=== PATIENT | female | born 1970 | race Caucasian/White ===

== ENCOUNTER 2017-08-08 17:16 | Emergency (ER) | payer OTHER ==
[~2017-08-08 17:16] MED LIST: BYSTOLIC20 MG PO; FLU VACCINE 0.0.5 ML IM; NESINA6.25 MG PO; PERCOCET 325 MG1 TA2 PO; PHENERGAN PO; TRAMADOL HCL50 MG PO; ZOFRAN 4 MG TABL4 MG PO
--- NOTE | 2017-08-08 18:11 | ED INFLUENZA/URI COMPLAINT ---
History of Present Illness General Chief Complaint: Fever Stated Complaint: FEVER Source: patient Exam Limitations: no limitations Vital Signs & Intake/Output Vital Signs & Intake/Output Vital Signs Date Time Temp Pulse Resp B/P B/P Pulse O2 O2 Flow FiO2 Mean Ox Delivery Rate 08/08 2014 99.8 98 18 102/56 98 Room Air 08/08 1853 96 Room Air 08/08 1850 100.7 100 22 101/53 96 Room Air 08/08 1829 102.6 08/08 1826 102.6 117 20 100/50 89 Room Air Room Air 08/08 1749 91 08/08 1733 103.0 08/08 1728 103.0 123 22 126/72 93 Room Air Allergies Coded Allergies: MDX - Hydrochlorothiazide (HYDROCHLOROTHIAZIDE) (Intermediate, SEVERE MUSCLE CRAMPING 03/19/15) MDX - Duloxetine (From CYMBALTA) (ANAPHYLAXIS 03/19/15) MDX - Vancomycin (ANAPHYLAXIS 03/19/15) Reconcile Medications Albuterol Sulfate (Ventolin Hfa) 90 MCG HFA.AER.AD 2 PUF INH Q4-6 PRN PRN WHEEZING Alogliptin Benzoate (Nesina) (Unknown Strength) TABLET (Unknown Dose) PO DAILY DIABETES (Reported) Benzonatate (Tessalon Perle) 100 MG CAPSULE 1 CAP PO TID PRN COUGH Codeine Phosphate/Guaifenesi (Cheratussin AC Syrup) 10 MG-100 MG/5 ML LIQUID 10 ML PO BID PRN COUGH Flu Vaccine (Flu Vaccine 0.5 Ml (NORVATIS)) 0.5 ML SYR 0.5 ML IM ONCE VACCINE (Reported) Fluticasone Propionate (Flonase Allergy Relief) 50 MCG/ACTUATION SPRAY.SUSP 2 SPRAY CARMEN DAILY CONGESTION Methylprednisolone. (Medrol) 4 MG TAB.DS.PK 1 DP PO AD INFLAMMATION 6 on day 1 then reduce by one tablet daily until gone Nebivolol Hydrochloride (Bystolic) (Unknown Strength) TAB (Unknown Dose) PO DAILY BP (Reported) OXYCODONE HCL/ACETAMINOPHEN (Percocet 5-325 MG Tablet) 325 MG/5 MG TAB 1-2 TAB PO Q4-6 PRN PRN PAIN TRAMADOL HCL (Tramadol HCl) 50 MG TABLET 1 TAB PO TID FIBROMYALGIA (Reported) Triage Note: PT TO ED WITH C/O GEN BODY ACHES, PROD COUGH, CONGESTION AND FEVER X 3 DAYS. REPORTS N/V AND POOR APPETITE WELL. Triage Nurses Notes Reviewed? yes Onset: Gradual Duration: constant Timing: recent history Severity: severe Severity Numbers: 7 : No Patient currently breastfeeds: No HPI: Patient is a 46-year-old female with a past medical history of Lyme disease, hypertension, and diabetes who is AN every day smoker presents emergency room with a 3 day history of generalized severe body aches muscle fatigue weakness cough and nasal congestion fevers and chills. Denies any similar sick contacts, patient had been recently prescribed a month long of azithromycin due to her Lyme disease and her symptoms were she is on day 2 feeling no better. Denies any arm pain jaw pain chest pain shortness of breath this evening exertion leg swelling hemoptysis sore throat ear pain. (Quintin Ramirez) Past History Travel History Traveled to [place] past 21 day No Medical History Any Pertinent Medical History? see below for history Cardiovascular: hypertension Respiratory: pneumonia Musculoskeletal: fibromyalgia, MRSA WOUND Endocrine: diabetes History of MRSA: Yes History of VRE: No History of CDIFF: No Surgical History Surgical History: non-contributory Psychosocial History Who do you live with Patient/Self Services at Home None What is your primary language [place] Tobacco Use: Current Not Daily Daily Tobacco Use Amount/Type: =< 4 Cigarettes daily Family History Family History, If Any: MOTHER Family hx of hypertension grandfather Heart attack Hx Contributory? No (Quintin Ramirez) Review of Systems Review of Systems Constitutional: Reports: see HPI, chills, fever. EENTM: Reports: see HPI, nasal congestion. Respiratory: Reports: see HPI, cough. Cardiovascular: Reports: no symptoms. GI: Reports: no symptoms. Genitourinary: Reports: no symptoms. Musculoskeletal: Reports: see HPI. Skin: Reports: no symptoms. Neurological/Psychological: Reports: no symptoms. Hematologic/Endocrine: Reports: no symptoms. Immunologic/Allergic: Reports: no symptoms. All Other Systems: Reviewed and Negative (Quintin Ramirez) Physical Exam Physical Exam General Appearance: alert, awake, lethargic Head: atraumatic Eyes: Bilateral: normal appearance, PERRL, EOMI. Ears, Nose, Throat: moist mucous membrane, hearing grossly normal, Tympanic normal, pharynx normal, nasal congestion, nasal drainage Neck: normal inspection, supple, full range of motion Respiratory: rhonchi, wheezing Cardiovascular: tachycardia Peripheral Pulses: 2+ radial (R) Gastrointestinal: normal bowel sounds, soft, non-tender Extremities: normal inspection, normal capillary refill, no edema Neurologic/Psych: no motor/sensory deficits, awake Skin: intact, normal color, warm/dry Core Measures Sepsis Present: No Sepsis Focused Exam Completed? No (Quintin Ramirez) Progress Differential Diagnosis: influenza, meningitis, neutropenia, otitis, pneumonia, pharyngitis, sinusitis Plan of Care: Orders Procedure Date/time Status RAPID VIRAL INFLUENZA A 08/09 1731 Complete Microbiology 08/08 1732 NASOPHARYN: Influenza Virus A & B Rapid Smear - COMP History of present illness and exam findings patient is concerned of upper respiratory infection and bronchitis, patient was already prescribed azithromycin, chest x-ray shows considered bronchitis patient's fever resolved patient was able tolerate by mouth upon discharge patient also had resolution of wheezing however noted rhonchi after nebulizer treatments still occurred. Patient was strongly advised to discontinue smoking. Patient felt better after medications were administered and had no questions upon discharge Diagnostic Imaging: Viewed by Me: Radiology Read. Radiology Impression: SEE COMMENTS Initial ED EKG: none Comments: PATIENT: LEAH LEON PRESENT AGE: 46 PATIENT ACCOUNT NO: [id number] : 71 LOCATION: [facility] ORDERING PHYSICIAN: Quintin CONRAD SERVICE DATE: 08/08/17 EXAM TYPE: RAD - XRY-CHEST XRAY, TWO VIEWS EXAMINATION: XR CHEST CLINICAL INFORMATION: Cough. Wheeze. COMPARISON: 03/19/2015 TECHNIQUE: 2 views of the chest were obtained. FINDINGS: The lungs are well expanded. There is no focal consolidation, edema, or effusion. Mild bronchial wall thickening present. No pneumothorax. The cardiomediastinal silhouette is within normal limits. No acute osseous abnormality. IMPRESSION: No consolidation. Bronchial wall thickening can be seen with a small airways process such as asthma or atypical/viral infection. DICTATED BY: Pedro Mckeon MD DATE/TIME DICTATED:08/08/171842 TAIL PULLER:FANY DATE/TIME TRANSCRIBED:08/08/171842 (Quintin Ramirez) Departure Departure Disposition: HOME OR SELF CARE Condition: Stable Clinical Impression Primary Impression: Bronchitis Secondary Impressions: Fever Referrals: Tulio Sánchez MD (PCP/Family) Additional Instructions: As discussed please discontinue smoking, begin the prescription of Medrol Dosepak tomorrow as you received prednisone emergency room today, begin the prescription of Tessalon Perles and Cheratussin for cough, Ventolin for wheezing , and Flonase for congestion. Prescriptions are waiting at [facility]. If symptoms worsen or if you develop any new concerning symptom return to emergency room. If no better on Saturday follow-up with your doctor begin drinking plenty of water for hydration begin Motrin for pain and Tylenol for fevers. Continue previously prescribed azithromycin Departure Forms: Customer Survey General Discharge Information Prescriptions: Current Visit Scripts Fluticasone Propionate (Flonase Allergy Relief) 2 SPRAY CARMEN DAILY #1 BOT Benzonatate (Tessalon Perle) 1 CAP PO TID PRN COUGH #21 CAP Codeine Phosphate/Guaifenesi (Cheratussin AC Syrup) 10 ML PO BID PRN COUGH #100 ML Albuterol Sulfate (Ventolin Hfa) 2 PUF INH Q4-6 PRN PRN WHEEZING #1 INHAL Methylprednisolone. (Medrol) 1 DP PO AD #1 DP 6 on day 1 then reduce by one tablet daily until gone (Quintin Ramirez) PA/WIRE PULLER Co-Sign Statement Statement: ED Attending supervision documentation- I saw and evaluated the patient. I have also reviewed all the pertinent lab results and diagnostic results. I agree with the findings and the plan of care as documented in the PA's/WIRE PULLER's documentation. x I have reviewed the ED Record and agree with the PA's/WIRE PULLER's documentation. [] Additions or exceptions (if any) to the PAs/WIRE PULLER's note and plan are summarized below: [] (Corina DONALDSON,Alexx)
[2017-08-08] MEDS ORDERED: FLONASE ALLERG9.9 ML NAS (18:14)
[2017-08-08] MEDS ORDERED: MEDROL4 M2 PO (18:14)
[2017-08-08] MEDS ORDERED: TESSALON PERLE100 M1 PO (18:14)
[2017-08-08] MEDS ORDERED: VENTOLIN HFA18 GM INH (18:14)
[2017-08-08] MEDS ORDERED: CHERATUSSIN AC118 M1 PO (18:14)
--- NOTE | 2017-08-08 18:48 | RADIOLOGY REPORT ---
EXAMINATION: XR CHEST CLINICAL INFORMATION: Cough. Wheeze. COMPARISON: 03/19/2015 TECHNIQUE: 2 views of the chest were obtained. FINDINGS: The lungs are well expanded. There is no focal consolidation, edema, or effusion. Mild bronchial wall thickening present. No pneumothorax. The cardiomediastinal silhouette is within normal limits. No acute osseous abnormality. IMPRESSION: No consolidation. Bronchial wall thickening can be seen with a small airways process such as asthma or atypical/viral infection.
[2017-08-08 20:15] VITALS: BP 102/56
== END 2017-08-08 20:30 ==
LOC: ERH 17:16
DX: J40 Bronchitis, not specified as acute or chronic (principal); F17.210 Nicotine dependence, cigarettes, uncomplicated
CPT/HCPCS: 1263; 71046; 87804; 87804-59